=== PATIENT | female | born 1970 ===

== ENCOUNTER → 2020-07-28 | Outpatient (REF) ==
--- NOTE | 2020-07-28 12:32 | Diagnostic Imaging Report ---
INDICATION: Positive TB skin test. PA and lateral chest obtained at 12:25 p.m. Heart and mediastinal silhouette are normal in appearance. The lungs are clear. There is no pneumothorax or pleural fluid. There is a compression deformity of T12 of undetermined age. IMPRESSION: No acute process in the chest. Dictated by: Dictated on workstation # [id number]
== END ==
LOC: OCC 12:12
PROVIDERS: ATTEND Nurse Practitioner Family
DX: R76.11 Nonspecific reaction to tuberculin skin test without active tuberculosis (principal)
CPT/HCPCS: 71046